=== PATIENT | male | born 1970 | race Caucasian/White ===

== ENCOUNTER 2018-04-18 10:53 | Emergency (ER) | payer OTHER ==
[~2018-04-18] VITALS: Ht 180.3 cm; Wt 106.6 kg
[2018-04-18] MEDS ORDERED: HYDROcodone/APAP 5/325MG 1 TAB TABLET PO ONE (11:15)
[2018-04-18 11:19] VITALS: BP 183/99
[2018-04-18] MEDS ORDERED: LIDOCAINE WITH 8.4% SOD BICARB 3 ML DISP.SYRIN. INJ ONE (11:45)
--- NOTE | 2018-04-18 11:45 | RAD ---
Right tibia and fibula, 2 views, 04/18/2018: HISTORY: Leg laceration No fracture or bony abnormality is detected. There is soft tissue deformity laterally. No definite radiopaque foreign body is evident. IMPRESSION: No acute bony abnormality is detected. Electronically signed by: Torrey Casiano MD (04/18/2018 11:42 AM) [facility]
--- NOTE | 2018-04-18 11:48 | PHYS DOC ---
Past Medical History Past Medical History: No Pertinent History Past Surgical History: No Surgical History Alcohol Use: Occasionally Drug Use: None Adult General Chief Complaint Chief Complaint: LACERATION/AVULSION HPI HPI Patient is a 47 year old male who presents with 3 inch open laceration to the right lower leg. Patient states that he had a tetanus shot one year ago. Patient cut his leg leaning forward on a piece of tile. Bleeding is controlled. Review of Systems Review of Systems Constitutional: Denies fever or chills [] Eyes: Denies change in visual acuity, redness, or eye pain [] HENT: Denies nasal congestion or sore throat [] Respiratory: Denies cough or shortness of breath [] Cardiovascular: No additional information not addressed in HPI [] GI: Denies abdominal pain, nausea, vomiting, bloody stools or diarrhea [] : Denies dysuria or hematuria [] Musculoskeletal: Denies back pain or joint pain [] Integument: 3 inch laceration to posterior right lower leg. Denies rash or skin lesions [] Neurologic: Denies headache, focal weakness or sensory changes [] Endocrine: Denies polyuria or polydipsia [] All other systems were reviewed and found to be within normal limits, except as documented in this note. Current Medications Current Medications Current Medications Medications (Trade) Dose Ordered Sig/Suraj Start Time Stop Time Status Last Admin Dose Admin Acetaminophen/ Hydrocodone Bitart (Lortab 5/325) 2 tab 1X ONCE 04/18/18 11:15 04/18/18 11:24 DC 04/18/18 11:15 2 TAB Lidocaine/Sodium Bicarbonate (Buffered Lidocaine 1%) 6 ml 1X ONCE 04/18/18 11:45 04/18/18 11:46 DC 04/18/18 11:45 6 ML Ondansetron HCl (Zofran Odt) 4 mg 1X ONCE 04/18/18 12:30 04/18/18 12:31 DC 04/18/18 12:27 4 MG Allergies Allergies Allergies Coded Allergies Type Severity Reaction Last Updated Verified No Known Drug Allergies 04/18/18 No Physical Exam Physical Exam Constitutional: Well developed, well nourished, no acute distress, non-toxic appearance. [] HENT: Normocephalic, atraumatic, bilateral external ears normal, oropharynx moist, no oral exudates, nose normal. [] Eyes: PERRLA, EOMI, conjunctiva normal, no discharge. [] Neck: Normal range of motion, no tenderness, supple, no stridor. [] Cardiovascular:Heart rate regular rhythm, no murmur [] Lungs & Thorax: Bilateral breath sounds clear to auscultation [] Abdomen: Bowel sounds normal, soft, no tenderness, no masses, no pulsatile masses. [] Skin: 3 inch open laceration to posterior right lower leg. Warm, dry, no erythema, no rash. [] Back: No tenderness, no CVA tenderness. [] Extremities: No tenderness, no cyanosis, no clubbing, ROM intact, no edema. [] Neurologic: Alert and oriented X 3, normal motor function, normal sensory function, no focal deficits noted. [] Psychologic: Affect normal, judgement normal, mood normal. [] Current Patient Data Vital Signs Vital Signs Date Time Temp Pulse Resp B/P (MAP) Pulse Ox O2 Delivery O2 Flow Rate FiO2 04/18/18 11:19 98.0 79 16 183/99 (127) 98 Room Air 98.0 EKG EKG [] Radiology/Procedures Radiology/Procedures Tibia, fibula Impressions: [facility] [address] [place], [place] [id number] IMAGING REPORT Signed PATIENT: JOSR OG ACCOUNT: [id number] : 1970 LOCATION: ER AGE: 47 SEX: M EXAM STATUS: REG ER ORD. PHYSICIAN: CASIE GAMEZ APRN REASON: Right lower leg laceration ER 15 PROCEDURE: TIBIA FIBULA RIGHT Right tibia and fibula, 2 views, 04/18/2018: HISTORY: Leg laceration No fracture or bony abnormality is detected. There is soft tissue deformity laterally. No definite radiopaque foreign body is evident. IMPRESSION: No acute bony abnormality is detected. Electronically signed by: Torrey Casiano MD (04/18/2018 11:42 AM) [facility] DICTATED and SIGNED BY: TORREY CASIANO MD DATE: 04/18/18 1141 Course & Med Decision Making Course & Med Decision Making Patient has a 3 inch laceration to the right lower posterior leg. Patient was at work and cut it on a piece of tile around 10:30 this morning. Bleeding is controlled. Laceration does not look to affect muscle or tendons. There is adipose tissue present. Laceration is cleaned out with Betadine and normal saline. No foreign bodies are seen. Laceration is numbed with 5ml buffering lidocaine and sutured with 3-0 Ethicon.12 sutures were placed. Patient tolerated well. Patient is educated on wound care and is told to return to ED if symptoms of infection and should return in 7-10 days for suture removal. [] Dragon Disclaimer Dragon Disclaimer This electronic medical record was generated, in whole or in part, using a voice recognition dictation system. Departure Departure Impression: Primary Impression: Laceration Disposition: 01 HOME, SELF-CARE Condition: STABLE Referrals: JAYLEN FRANCO MD (PCP) Patient Instructions: Laceration Care, Adult Additional Instructions: Follow up with primary care or return to ED for suture removal or signs of infection. Scripts Oxycodone/Apap 5-325 (PERCOCET 5-325 MG TABLET) 1 Each Tablet 1 TAB PO PRN Q6HRS PRN for PAIN, #5 TAB 0 Refills Prov: CASIE GAMEZ APRN 04/18/18 CASIE GAMEZ APRN Apr 18, 2018 11:48
[2018-04-18] MEDS ORDERED: ONDANSETRON ODT 4 MG TAB.RAPDIS. ONE (12:15)
[2018-04-18] MEDS ORDERED: ONDANSETRON ODT 4 MG TAB.RAPDIS. PO ONE (12:30)
[2018-04-18] MEDS ORDERED: HYDR-971 PO (12:54)
[2018-04-18] MEDS ORDERED: OXYC-323 PO (13:18)
== END 2018-04-18 13:25 | disposition home or self-care (01) ==
LOC: ER 10:53
DX: S81.811A Laceration without foreign body, right lower leg, initial encounter (principal); W26.8XXA Contact with other sharp object(s), not elsewhere classified, initial encounter; Y93.89 Activity, other specified; Y92.89 Other specified places as the place of occurrence of the external cause; Y99.8 Other external cause status
CPT/HCPCS: 12004; 73590; 99284; Q0162